=== PATIENT | female | born 1975 ===

== ENCOUNTER 2018-09-06 15:39 | Emergency (ER) | payer SELFPAY ==
[2018-09-06 15:40] VITALS: BMI 33.5
[2018-09-06 16:12] VITALS: RESP 18
[2018-09-06 17:31] LABS: BASO % 0.5 % (0.0-2.0); EOS # 0.1 K/uL (0.0-0.7); HEMOGLOBIN 11.3 g/dL (12.0-16.0); LYMPH # 1.8 K/uL (1.0-4.3); LYMPH % 24.6 % (20.0-40.0); MEAN CELL VOLUME 93.6 fl (81.0-99.0); MEAN CORPUSCULAR HEMOGLOBIN 31.6 pg (27.0-31.0); MEAN CORPUSCULAR HGB CONC 33.7 g/dL (33.0-37.0); MEAN PLATELET VOLUME 8.6 fl (7.2-11.7); MONO # 0.4 K/uL (0.0-0.8); MONO % 5.9 % (0.0-10.0); NEUT # 4.9 K/uL (1.8-7.0); RBC 3.58 Mil/uL (3.80-5.20); RED CELL DISTRIBUTION WIDTH 13.8 % (11.5-14.5); WHITE BLOOD COUNT 7.3 K/uL (4.8-10.8)
[2018-09-06 17:35] LABS: ALB/GLOB RATIO 1.5 (1.0-2.1); ALBUMIN 4.1 g/dL (3.5-5.0); ALT/SGPT 23 U/L (9-52); AST/SGOT 19 U/L (14-36); BLOOD UREA NITROGEN 15 mg/dl (7-17); CALCIUM 8.5 mg/dL (8.4-10.2); GFR NON-AFRICAN AMERICAN > 60; LIPASE 79 U/L (23-300)
[2018-09-06] MEDS ORDERED: Tmp-Smz 800 mg-160 mg DS Tab PO STA (17:47)
[2018-09-06] MEDS ORDERED: Tmp-Smz 800 mg-160 mg DS Tab ONE (18:09)
--- NOTE | 2018-09-06 18:50 | ED PDOC ---
HPI: Female Pain Time Seen by Provider: 09/06/18 16:28 Chief Complaint (Nursing): Female Genitourinary Chief Complaint (Provider): Female Genitourinary History Per: Patient History/Exam Limitations: no limitations Onset/Duration Of Symptoms: Days (x5), Worse Since (x3) Current Symptoms Are (Timing): Still Present Additional Complaint(s): 43 year old female presents to the ED for evaluation of right sided pelvic pain that developed fifteen days ago, unchanged, associated with dysuria and urinary frequency which developed five days ago, and worsening three days ago when she developed yellow/ brownish vaginal discharge. She reports her menstrual cycle ended five days ago and has been using OTC miconazole intravaginal cream for the discharge with little relief. Otherwise, denies fever, chills, nausea, vomiting, diarrhea, and taking any pain meds. Past Medical History Reviewed: Historical Data, Nursing Documentation, Vital Signs Vital Signs: Last Vital Signs Temp 97.9 F 09/06/18 16:09 Pulse 85 09/06/18 16:09 Resp 18 09/06/18 16:09 BP 107/72 09/06/18 16:09 Pulse Ox 98 09/06/18 16:09 Primary Care Provider: Procedure,Nonphys - Medical History PMH: No Chronic Diseases Denies: Chronic Kidney Disease - Surgical History Surgical History: (x3) Other surgeries: tubal ligation - Family History Family History: States: Unknown Family Hx - Social History Current smoker - smoking cessation education provided: No Alcohol: None Drugs: Denies - Immunization History Hx Tetanus Toxoid Vaccination: No Hx Influenza Vaccination: Yes Hx Pneumococcal Vaccination: No - Home Medications Home Medications: Ambulatory Orders Medication Instructions Recorded oxyCODONE/Acetaminophen [Percocet 1 tab PO Q6 3 Days #12 tab 12/17/17 5/325 mg Tab] Phenazopyridine HCl [Pyridium] 100 mg PO PC PRN #6 tablet 09/06/18 Sulfamethoxazole/Trimethoprim 1 tab PO BID #5 tab 09/06/18 [Bactrim DS 800 mg-160 mg] - Allergies Allergies/Adverse Reactions: Allergies Allergy/AdvReac Type Severity Reaction Status Date / Time No Known Allergies Allergy Verified 11/10/14 12:43 Review of Systems ROS Statement: Except As Marked, All Systems Reviewed And Found Negative Constitutional: Negative for: Fever, Chills Gastrointestinal: Negative for: Nausea, Vomiting, Diarrhea Genitourinary Female: Positive for: Dysuria, Frequency (urinary), Vaginal Discharge (yellow/ brown), Pelvic Pain (right sided) Physical Exam - Reviewed Nursing Documentation Reviewed: Yes Vital Signs Reviewed: Yes - Physical Exam Appears: Positive for: Uncomfortable Cardiovascular/Chest: Positive for: Regular Rate, Rhythm Respiratory: Positive for: Normal Breath Sounds. Negative for: Accessory Muscle Use, Respiratory Distress Gastrointestinal/Abdominal: Positive for: Soft, Tenderness (right lower quadrant and suprapubic area tender to palpation). Negative for: Guarding, Rebound Pelvic Exam: Positive for: External Exam Normal, Discharge (thick white/ light brown cottage cheese like discharge in vaginal vault), Tender W/Cervical Motion (mild), Tender Adnexa (right adnexa). Negative for: Cervicitis Neurological/Psych: Positive for: Awake, Alert, Oriented (x3) Comments: JAZ Cruz chaperoned pelvic exam - Laboratory Results Result Diagrams: 09/06/18 17:23 09/06/18 17:23 Lab Results: Total Bilirubin 0.6 mg/dl (0.2-1.3) 09/06/18 17:23 AST 19 U/L (14-36) 09/06/18 17:23 ALT 23 U/L (9-52) 09/06/18 17:23 Alkaline Phosphatase 51 U/L (38-126) 09/06/18 17:23 Total Protein 6.8 G/DL (6.3-8.2) 09/06/18 17:23 Albumin 4.1 g/dL (3.5-5.0) 09/06/18 17:23 Globulin 2.7 gm/dL (2.2-3.9) 09/06/18 17:23 Albumin/Globulin Ratio 1.5 (1.0-2.1) 09/06/18 17:23 Lipase 79 U/L (23-300) 09/06/18 17:23 Urine POC: Negative Urine dip results: Positive for: Leukocyte Esterase (trace), Blood (moderate), Nitrate (positive). Negative for: Ketones, Glucose, Bilirubin, Protein - ECG O2 Sat by Pulse Oximetry: 98 (RA) Pulse Ox Interpretation: Normal Medical Decision Making Medical Decision Making: Time: 1723 Initial Impression: dysuria, urinary frequency, RLQ pain, vaginal discharge Initial Plan: --CMP --Lipase --U-dip --U-preg --CBC with differential --Urine culture --US transvaginal --Ibuprofen 600mg PO 1944: Urine dip: nitrate positive, trace LE, blood moderate, color turbid. --Bactrim DS 1 tab PO x 1 ordered. Patient in US. 2034 Patient returned from US, resting comfortably in bed. US Findings: Real-time transabdominal and transvaginal ultrasound images of the pelvis were obtained. An enlarged, anteverted uterus is noted, measuring 12.2 x 8.2 x 4.8 cm. The uterus demonstrates normal echotexture and echogenicity. There is a complex solid lesion in the uterine fundus measuring 1.9 x 1.6 x 1.1 cm. The uterus is diffusely heterogeneous and enlarged. The endometrial thickness as well as the ovaries bilaterally are poorly visualized. There is no evidence of free fluid. Impression:1. Severely limited study with nonvisualization of the ovaries and endometrial stripe. 2. Enlarged, lobular uterus consistent with a leiomyomatous changes. 3. Small amount of fluid within the cervical canal. Electronically signed on September 06, 2018 21:14:49 PM EDT by: Buck Cotton M.D., M.B.A., Certified By [facility] Patient informed of U/S findings and inability to visualize ovaries. Abdomen re- examined and continues to have RLQ abdominal pain only slightly improved. CT abd/pelvis w/ IV contrast only ordered. 2308 CT Abdomen/Pelvis Findings: Chest: The visualized lung bases are clear. Abdomen: The liver, spleen, pancreas, kidneys, and adrenal glands are unremarkable. The aorta is within normal limits. There is no evidence of abdominal lymphadenopathy or ascites. There is mild fluid distention of bowel wall thickening throughout the small bowel. Pelvis: The colon is unremarkable, with no obstructive or inflammatory changes. The appendix is normal. The urinary bladder is only partially distended, with circumferential bladder wall thickening measuring up t. Several small follicles are seen in the ovaries bilaterally. The other pelvic structures appear grossly intact. There is no evidence of pelvic lymphadenopathy or ascites. Bones: There are no suspicious osseous abnormalities seen. Impression: 1. The appendix is normal. 2. Mild enteritis. No evidence of bowel obstruction. 3. Severe circumferential bladder wall thickening in a under distended urinary bladder compatible cystitis. 4. Small ovarian follicles bilaterally. ------- Scribe Attestation: Documented by Elizabeth Granados, acting as a scribe for Naye Caceres PA-C Provider Scribe Attestation: All medical record entries made by the Scribe were at my direction and personall y dictated by me. I have reviewed the chart and agree that the record accurately reflects my personal performance of the history, physical exam, medical decision making, and the department course for this patient. I have also personally directed, reviewed, and agree with the discharge instructions and disposition. Patient informed of CT scan and ultrasound findings. Advised that she may develop diarrhea. Further advised to complete full course of antibiotics as prescribed. She is to follow up within the next week with her applied statistician for re-evaluation. Stable for d/c home. Disposition - Clinical Impression Clinical Impression: Urinary tract infection, Yeast infection - Patient ED Disposition Is Patient to be Admitted: No Counseled Patient/Family Regarding: Studies Performed, Diagnosis, Need For Followup, Rx Given - Disposition Disposition: Routine/Home Disposition Time: 23:20 Condition: STABLE Additional Instructions: Follow up with your applied statistician if your symptoms do not improve after completion of vaginal suppositories. Take Pyridium for urinary discomfort and complete full course of antibiotics. Return to ER if your abdominal pain worsens or you develop fevers/chills. Prescriptions: Phenazopyridine HCl [Pyridium] 100 mg PO PC PRN #6 tablet PRN Reason: Bladder Spasm Sulfamethoxazole/Trimethoprim [Bactrim DS 800 mg-160 mg] 1 tab PO BID #5 tab Instructions: Urinary Tract Infection, Adult (DC), Yeast Infection (DC) Forms: [employer] ([place]) Print Language: CITIZEN OF [place]
[2018-09-06] MEDS ORDERED: Iohexol 300 100 ML IJ ONE (22:35)
[2018-09-06] MEDS ORDERED: Sodium Chloride 0.9% 50 ML IV ONE (22:35)
[2018-09-06 23:42] VITALS: BP 113/76; PULSE 87; TEMP 98.2
[2018-09-07 01:43] VITALS: O2SAT 98
--- NOTE | 2018-09-07 11:23 | US ---
Date of service: 09/06/2018 HISTORY: RLQ pain, + vag discharge. LMP 08/30/2018 COMPARISON: 12/15/2017 TECHNIQUE: Transvaginal with color Doppler and real-time cine imaging. FINDINGS: UTERUS: Measures 12.2 by 8.2 x 4.8 cm. Anteverted. In the right posterolateral upper uterus, a subserosal apparent intramural fibroid measuring 1.9 x 1.6 x 1.1 cm in size is suggested. Uterine echotexture appears mildly heterogeneous and somewhat amorphous with exclusion of the aforementioned small fibroid. ENDOMETRIUM: Endometrium is difficult to discretely discern. It is estimated to be between 7 and 12 mm. There is sliver like fluid in the endocervical canal and a few tiny nabothian cysts present. CERVIX: As above. RIGHT OVARY: Measures 3.3 x 3.2 x 1.9 cm. No solid mass. Normal flow. LEFT OVARY: Not visualized. FREE FLUID: No significant free fluid noted. OTHER FINDINGS: None. IMPRESSION: Endometrium indistinct on multiple images-Estimated thickness 7 to 12 mm-grossly within normal limits. endocervical canal sliver like fluid nonspecific yet compatible with history of vaginal discharge. Tiny few nabothian cysts. Correlate clinically. Nonvisualized left ovary. Unremarkable appearing right ovary.
--- NOTE | 2018-09-07 14:04 | CT ---
Date of service: 09/06/2018 PROCEDURE: CT Abdomen and Pelvis with contrast HISTORY: evaluate for appendicitis COMPARISON: 09/06/2018 pelvic ultrasound TECHNIQUE: Intravenous contrast dose: 95 cc Omnipaque 300. Radiation dose: Total exam DLP = 660.46. mGy-cm. This CT exam was performed using one or more of the following dose reduction techniques: Automated exposure control, adjustment of the mA and/or kV according to patient size, and/or use of iterative reconstruction technique. FINDINGS: LOWER THORAX: Unremarkable. LIVER: Unremarkable. No gross lesion or ductal dilatation. GALLBLADDER AND BILE DUCTS: Status post cholecystectomy. No abnormality is seen in the gallbladder fossa. Dilatation of the common duct noted consistent with prior cholecystectomy. PANCREAS: Unremarkable. No gross lesion or ductal dilatation. SPLEEN: Unremarkable. ADRENALS: Unremarkable. No mass. KIDNEYS AND URETERS: Unremarkable. No hydronephrosis. No solid mass. VASCULATURE: Unremarkable. No aortic aneurysm. No atherosclerotic calcification or mural plaque present. BOWEL: Unremarkable. No obstruction. No gross mural thickening. APPENDIX: No abnormalities to suggest acute appendicitis. No right lower quadrant inflammatory processes identified. PERITONEUM: Unremarkable. No free fluid. No free air. LYMPH NODES: Unremarkable. No enlarged lymph nodes. BLADDER: Markedly thickened urinary bladder wall with perivesical inflammatory changes consistent with acute cystitis. REPRODUCTIVE: Unremarkable. Multiple subcentimeter follicles. BONES: No acute fracture. OTHER FINDINGS: None. IMPRESSION: No abnormalities to suggest acute appendicitis. No right lower quadrant inflammatory processes identified. Severe cystitis. Concordant results (preliminary interpretation) provided by [email or web address] Procedure Completed: 22:43 Preliminary Report: Interpreted and electronically signed: 23:09. Final Interpretation: 14:01. September 07, 2018.
== END 2018-09-06 23:39 | disposition home or self-care (01) ==
LOC: H.ER 15:39
DX: N39.0 Urinary tract infection, site not specified (principal); B37.3 Candidiasis of vulva and vagina
CPT/HCPCS: 74177; 76830; 80053; 81025; 83690; 85025; 87070; 87086; 87181; 99284; Q9967